=== PATIENT | female | born 1955 | race Caucasian/White ===

== ENCOUNTER 2022-02-19 11:46 | Day surgery (SDC) | payer OTHER ==
[~2022-02-19] VITALS: Ht 167.6 cm; Wt 81.3 kg
--- NOTE | ~2022-02-19 | OR ---
[facility] [address] [place], [place] [address] Draft DATE OF OPERATION: 02/19/2022 SURGEON: Kaylee Irby MD PREOPERATIVE DIAGNOSIS: Colon screening. POSTOPERATIVE DIAGNOSIS: Pandiverticulosis. PROCEDURES: Total colonoscopy to cecum. ANESTHESIA: Intravenous sedation; fentanyl 150 mcg and Versed 15 mg. 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 She is known to me from the past having undergone left modified radical mastectomy for breast cancer in 2011. She is a patient of Dr. Mimi Jaramillo. She is here for screening colonoscopy having no symptoms of bleeding, diarrhea, or constipation and no family history of colon cancer. She understands the risks of bleeding, infection, and perforation related to colonoscopy and wished to proceed. FINDINGS: The prep was good. Complete colonoscopy was undertaken to the cecum without question. Full intubation to the cecum was accomplished. She had no evidence of polyps or colitis. There were multiple diverticula extending from the sigmoid all the way to and including the right colon and cecum. DESCRIPTION OF PROCEDURE: The patient was brought to the endoscopy suite and placed in lateral decubitus position. She was given intravenous sedation to the point of slurred speech and nystagmus. Digital rectal examination was normal. Full cardiopulmonary monitoring was maintained. An Olympus video colonoscope was passed in the rectum and manipulated throughout the colon. Numerous diverticula are seen in the sigmoid and left colon. The scope was advanced more fully, ultimately intubating the cecum fully. The ileocecal valve and appendiceal orifice were normal. There were diverticula in the cecal area as well as the right colon. The scope was withdrawn and examination throughout showed no sign of PATIENT NAME: JOSE ALLEN "MATILDE" OPERATIVE REPORT DATE OF : 59 REPORT #: [id number] PHYSICIAN: KAYLEE IRBY MD PCP: BOUBACAR WILLS NP REPORT IS CONFIDENTIAL AND NOT TO BE RELEASED WITHOUT AUTHORIZATION [facility] [address] [place], [place] [address] Draft polyps or colitis but certainly did show extensive diverticular changes. Retroflexed view of the rectum was normal other than some internal hemorrhoids. The scope was straightened, withdrawn, and removed. The patient was taken to the recovery room in good condition. CONCLUDING DIAGNOSIS: Pandiverticulosis. PLAN: We would recommend high-fiber diet going forward and repeat colonoscopy in 10 years based on current guidelines. Colonoscopy sooner could be undertaken for symptoms of course. She will return to the ongoing care of Dr. Jaramillo. MD CRISTINA Abrams/MODL /[id number] cc: Dr. Matilde Jaramillo MD Copies: MIMI JARAMILLO MD ~ PATIENT NAME: ALEJANDRO,CONTENT "MATILDE" OPERATIVE REPORT DATE OF : 59 REPORT #: [id number] PHYSICIAN: KAYLEE IRBY MD PCP: BOUBACAR WILLS NP REPORT IS CONFIDENTIAL AND NOT TO BE RELEASED WITHOUT AUTHORIZATION
[~2022-02-19 11:46] MED LIST: AMBIEN10 MG PO; CEPHALEXIN500 MG PO; COZAAR100 MG PO; MIRAPEX0.125 MG PO
[2022-02-19] MEDS ORDERED: HYDROCHLOROTHIA25 MG PO (12:13)
--- NOTE | 2022-02-19 15:15 | NUR ---
02/19/22 1515 Anat Lopez 1507-PATIENT ARRIVED TO PACU ON 2L NC RR EVEN PATIENT AWAKE DENIES PAIN OR NAUSEA. LAYING LEFT LATERAL. ABDOMEN SOFT. IVF INFUSING ENCOURAGED TO PASS GAS 1515-PATIENT AWAKE DENIES PAIN OR NAUSEA PLACED ON RA 100% RR EVEN.
== END 2022-02-19 16:15 | disposition home or self-care (01) ==
LOC: OPS 11:46 → DS 11:46 → OPS 13:00 → DS 13:00 → OPS 16:15
PROVIDERS: ATTEND Surgery
PROC: 0DJD8ZZ Inspection of Lower Intestinal Tract, Via Natural or Artificial Opening Endoscopic (ICD-10-PCS; principal; 2022-02-19 13:00)
DX: Z12.11 Encounter for screening for malignant neoplasm of colon (principal); K57.30 Diverticulosis of large intestine without perforation or abscess without bleeding; K64.8 Other hemorrhoids; I10 Essential (primary) hypertension; Z85.3 Personal history of malignant neoplasm of breast; Z79.899 Other long term (current) drug therapy; Z86.16 Personal history of COVID-19
CPT/HCPCS: 99153; G0500; J2250; J3010; J7121